=== PATIENT | male | born 1965 | race Caucasian/White ===

== ENCOUNTER → 2016-10-25 | Outpatient (CLI) | payer OTHER ==
--- NOTE | ~2016-10-25 | 2DMMODE ---
[facility] [address] [place] [address] 2 D/M-MODE ECHOCARDIOGRAM Name: MIREYA CULVER [place] Room #: REG Danilo#: [id number] Admission: 10/25/16 Attend Phys: Goyo Buckner Discharge: Date of : 63 Date of Service: 10/25/16 1831 Report #: [id number] THIS REPORT FOR: //name// APPROVED REPORT Study performed: 10/25/2016 11:53:49 EXAM: Comprehensive 2D, Doppler, and color-flow Echocardiogram Patient Location: Out-Patient Room #: Echo lab Status: routine Other Information Study Quality: Good Risk Factors: Cardiac Risk Factors: HTN, Hyperlipidemia Indications CAD Chest Pain Hypertension/HDD 2D Dimensions LVEF(%): 45.34 (>50%) IVSd: 11.28 (7-11mm) LVOT Diam: 22.59 (18-24mm) LVDd: 53.23 mm PWd: 10.99 (7-11mm) Ascending Ao: 31.94 (22-36mm) LVDs: 41.12 (25-40mm) Aortic Root: 34.01 mm IVC: 20.00 mm Whitley's LVEF: 45.34 % Volumes Left Atrial Volume (Systole) Single Plane 4CH: 92.60 mL Single Plane 2CH: 70.78 mL LA ESV Index: 39.00 mL/m2 Aortic Valve AoV Peak Vinay.: 1.33 m/s AO Peak Gr.: 7.08 mmHg LVOT Max P.18 mmHg LVOT Max V: 1.14 m/s ARIANNA Vmax: 3.43 cm2 Mitral Valve E/A Ratio: 1.[address] [facility] [address] [place] [address] 2 D/M-MODE ECHOCARDIOGRAM Name: MIREYA CULVER [place] Room #: REG [facility]#: [id number] Admission: 10/25/16 Attend Phys: Goyo Buckner Discharge: Date of : 63 Date of Service: 10/25/16 1831 Report #: [id number] MV Decel. Time: 256.44 ms MV E Max Vinay.: 1.29 m/s MV A Vinay.: 0.81 m/s MV PHT: 74.37 ms IVRT: 83.04 ms Pulmonary Valve PV Peak Vinay.: 0.83 m/s PV Peak Gr.: 2.78 mmHg Pulmonary Vein P Vein S: 0.76 m/s P Vein A: 0.20 m/s P Vein D: 0.75 m/s P Vein A Dur.: 106.1 msec P Vein S/D Ratio: 1.01 Tricuspid Valve TR Peak Vinay.: 2.88 m/s RAP Estimate: 10.00 mmHg TR Peak Gr.: 33.19 mmHg PA Pressure: 43.00 mmHg Left Ventricle The left ventricle is normal size. Akinesis of septum, anterolateral wall and apex There is normal left ventricular wall thickness. Left ventricular ejection fraction is moderate to severely decreased. LVEF 30%. Grade II diastolic dysfunction Right Ventricle The right ventricle is normal size. The right ventricular systolic function is normal. Atria Left atrium is dilated. Right atrium is dilated. Aortic Valve Aortic valve is calcified. Mild aortic regurgitation. There is no aortic valvular stenosis. Mitral Valve The mitral valve is normal in structure. Mild mitral regurgitation. No evidence of mitral valve stenosis. Tricuspid Valve The tricuspid valve is normal in structure. There is mild tricuspid regurgitation. The right atrial pressure is estimated at 10 mmHg. There is mild-moderate pulmonary hypertension. Pulmonic Valve [address] [address] 2 D/M-MODE ECHOCARDIOGRAM Name: ABIOLAMIREYA WESTFORD Room #: REG [facility]#: [id number] Admission: 10/25/16 Attend Phys: Goyo Buckner Discharge: Date of : 63 Date of Service: 10/25/16 1831 Report #: [id number] The pulmonary valve is normal in structure. There is no pulmonic valvular regurgitation. Great Vessels The aortic root is normal in size. IVC is dilated and collapses >50% with inspiration. Pericardium There is no pericardial effusion. <Conclusion> Left ventricular ejection fraction is moderate to severely decreased. Akinesis of septum, anterolateral wall and apex LVEF 30%. Grade II diastolic dysfunction Both atria are mildly dilated. Aortic valve is calcified. Mild aortic regurgitation. No stenosis The mitral valve is normal in structure. Mild mitral regurgitation. Pulmonary artery pressure of 40mmHg There is no pericardial effusion. <ELECTRONICALLY SIGNED> By: Caio Ramires MD, [facility] 10/25/161830 30 30 Caio Ramires MD, FACC /INF
== END ==
LOC: CV 11:45
DX: I25.10 Atherosclerotic heart disease of native coronary artery without angina pectoris (principal); I10 Essential (primary) hypertension

== ENCOUNTER 2016-12-11 08:07 | Observation (INO) | payer OTHER | END 2016-12-12 18:55 | disposition home or self-care (01) | LOC: CATH 08:07 → 2N 14:22 | DX: I25.5 Ischemic cardiomyopathy (principal); I50.22 Chronic systolic (congestive) heart failure; E78.5 Hyperlipidemia, unspecified; F17.210 Nicotine dependence, cigarettes, uncomplicated; Z72.89 Other problems related to lifestyle ==

== ENCOUNTER 2018-06-08 06:31 | Outpatient (CLI) | payer OTHER ==
[~2018-06-08] VITALS: Ht 182.9 cm; Wt 113.8 kg
--- NOTE | ~2018-06-08 | P ---
[facility] [place] [address] [place] [address] PROCEDURE REPORT Name: MIREYA CULVER [place] Room #: DEP DEAN Carrasco#: [id number] Admission: 06/08/18 Attend Phys: Herminio Samuel MD Discharge: 06/09/18 Date of : 63 Report #: [id number] THIS REPORT FOR: //name// CC: JAE ryder Goyo Yue Samuel DATE OF SERVICE: 06/08/2018 PREOPERATIVE DIAGNOSIS: Supraventricular tachycardia. POSTOPERATIVE DIAGNOSES: 1. Typical atrioventricular nino reentrant tachycardia. 2. Monomorphic ventricular tachycardia. HISTORY OF PRESENT ILLNESS: The patient is a 52-year-old with history of coronary artery disease, status post ME and status post ICD implantation for primary prevention of sudden cardiac . He was recently hospitalized with supraventricular tachycardia, and he was placed on medications. He is here for EP study and SVT ablation. PROCEDURES PERFORMED: 1. SVT ablation, CPT code 90132. 2. EP with left atrial pacing and recording, CPT code 84883. 3. Program stimulation and pacing after IV drug infusion, CPT code 61264. 4. 3D mapping EP, CPT code 48898. 5. Preprocedural ICD reprogramming, CPT CODE 57651. 6. Post-procedure ICD reprogramming, CPT CODE 27740. ANESTHESIA: The patient underwent MAC anesthesia with no anesthesia related complications. DESCRIPTION OF PROCEDURE: The patient underwent informed consent. We discussed the details of the procedure including the risks, which include, but not limited to bleeding, vascular damage, stroke, ME as well as damage to the tribe conduction system requiring permanent pacemaker. He understood these risks and is willing to proceed. Prior to initiation of the procedure, his ICD was reprogrammed to VVI 30 and his ICD therapies were disabled. Next, I obtained access to the bilateral femoral veins placing an 8 and 6-Malaysian short sheath in the right femoral vein and a 6 and 7-Malaysian short sheath in the left femoral vein. Next, under fluoroscopy, I placed 3 quadripolar catheters at the HRA, His and RV positions and decapolar catheter easily in the coronary sinus. Next, a basic EP study was performed. Pacing was performed from all catheters including the coronary sinus catheter for left atrial pacing and recording. At baseline, the patient was in sinus rhythm with sinus cycle length of 840 milliseconds, SD interval 135 milliseconds, QRS duration 80 milliseconds, QT interval 390 [facility] [address] [place] [address] PROCEDURE REPORT Name: MIREYA CULVER [place] Room #: DEP DEAN Carrasco#: [id number] Admission: 06/08/18 Attend Phys: Herminio Samuel MD Discharge: 06/09/18 Date of : 63 Report #: [id number] milliseconds, AH interval 87 milliseconds and HV interval 36 milliseconds. Atrial burst pacing was performed and AV block was noted at 350 milliseconds. Atrial ERP was noted at 320 milliseconds at a [address] cycle length. Ventricular pacing was performed and VA block was noted at 320 milliseconds. VA ERP was noted at 330 milliseconds at a [address] cycle length. Of note, prior to the ablation, the patient reported that he had accidentally taken Coreg on the morning of the procedure, this probably made induction somewhat challenging. Next, isoproterenol infusion was initiated at 2 mcg per minute. We did not really get robust effect from this. AV block was noted at 320 milliseconds. Single atrial extrastimuli were delivered, and we would get reproducible single AV nino echoes, but no induction of SVT. Next, isoproterenol was initiated at 4 mcg per minute. Atrial burst pacing was performed. I could not induce SVT. I then performed ventricular burst pacing at around 300 milliseconds. There was evidence of a long-short phenomenon due to lack of capture of one of the ventricular paced beats, and this resulted in ventricular tachycardia. The initial VT was at 290 milliseconds with a right bundle branch block morphology negative concordance, and it was superiorly directed and negative in lead 1. This VT lasted for 4 seconds and then he went into a more stable VT that had a cycle length of 250 milliseconds, QRS duration was 130 milliseconds with a right bundle branch block morphology negative concordance and this one was now inferiorly directed. This lasted for 20 seconds, did not respond to ventricular burst pacing, and therefore, a 200 joule synchronized cardioversion restored sinus rhythm. This was clearly ventricular tachycardia as there was clear AV dissociation. We therefore continued with the EP study and with atrial burst pacing, I could now induce SVT. The SVT had a cycle length of 380 milliseconds, the septal VA time was 35 milliseconds, and I was able to perform ventricular entrainment with evidence of VAHV response. This tachycardia was now easily inducible, and it was clearly the clinical arrhythmia as we had seen documented on his ICD tracings. 3D MAPPING AND ABLATION: Next, I removed my HRA catheter and placed a 4 mm [employer] Mercado ablation catheter into the right atrium via an SR0 sheath. I created a detailed 3D geometry of the right atrium with specific emphasis of the His bundle and slow pathway region. I performed a total of 7 ablation lesions. Lesion #6 and 7 demonstrated nice slow junctionals. Post-ablation testing was then performed. We performed testing on 6 mcg of isoproterenol. AV block was noted at 300 milliseconds. Atrial ERP was noted at 220 milliseconds at [address] cycle length. I continue to perform aggressive atrial pacing maneuvers, performed a less aggressive ventricular pacing maneuvers as I did not want to induce VT again. We tested for approximately an hour and decreased the iso to 3 mcg per minute and then tested while he was off isoproterenol. Off isoproterenol, AV block was noted at 350 milliseconds. We no longer had any echoes and could no longer induce SVT. As such, the procedure was then concluded. Post-ablation, he was in sinus rhythm with a sinus cycle length of 840 milliseconds, SD interval 170 milliseconds, QRS duration 80 milliseconds, QT interval 385 milliseconds. As such, all catheters and sheaths [facility] [address] [place] [address] PROCEDURE REPORT Name: MIREYA CULVER [place] Room #: DEP [facility].#: [id number] Admission: 06/08/18 Attend Phys: Herminio Samuel MD Discharge: 06/09/18 Date of : 63 Report #: [id number] were pulled and hemostasis obtained and the patient awoke neurologically and hemodynamically intact with no significant bleeding. His ICD was reinterrogated. His therapies were reenabled. CONCLUSIONS: 1. Successful ablation of typical AV nino reentrant tachycardia. 2. Normal SA nino function. 3. Normal AV nino function. 4. Normal His-Purkinje function. 5. Induction of a monomorphic ventricular tachycardia, which is likely due to his prior apical myocardial infarction. RECOMMENDATIONS: The patient will be monitored in the post-procedure suite and undergo 3 hours of bed rest. I anticipate discharge home as the patient is doing well. By: 1239 1722 Herminio Samuel MD /pablito
[~2018-06-08 06:31] MED LIST: ALDACTONE25 MG PO; ASPIR 8181 MG PO; CARVEDILOL25 MG PO; EFFIENT10 MG PO; ENTRESTO 49 MG1 EACH PO; IMDUR 30 MG TAB30 M1 PO; LOVASTATIN 20 M20 MG PO; POTASSIUM GLUCO99 M2 PO
[2018-06-08 06:58] VITALS: BP 122/77
[2018-06-08 07:13] LABS: ABSOLUTE NEUTROPHILS 5.1 thou/uL (1.4-8.2); BASOPHILS 0.9 % (0.0-2.0); EOSINOPHILS 3.8 % (0.0-3.0); HEMATOCRIT 40.2 % (42.0-52.0); LYMPHOCYTES 29.3 % (24.0-44.0); MCH 30.9 pg (26.0-34.0); MCHC 34.8 g/dL (28.0-37.0); MCV 88.9 fL (80.0-100.0); MONOCYTES 10.5 % (1.0-8.0); PLATELET COUNT 236 thou/uL (150-400); POLYS 55.5 % (36.0-66.0); RBC 4.53 mil/uL (4.50-6.00); RDW 13.8 % (10.5-14.5); WBC 9.2 thou/uL (4.0-11.0)
[2018-06-08] MEDS ORDERED: LASIX 40 MG TAB40 M2 PO (07:14)
[2018-06-08] MEDS ORDERED: PLAVIX 75 MG TA75 M1 PO (07:14)
[2018-06-08] MEDS ORDERED: DIGOXIN250 MCG PO (07:15)
[2018-06-08] MEDS ORDERED: PROTONIX40 M1 PO (07:17)
[2018-06-08 07:21] LABS: CALCIUM 9.1 mg/dL (8.5-10.1); CREATININE 1.6 mg/dL (0.7-1.3)
[2018-06-08 07:23] LABS: APTT 26.7 Seconds (24.5-32.8); PROTIME 10.1 Seconds (9.3-11.4)
[2018-06-08 07:27] LABS: ALBUMIN 3.1 g/dL (3.4-5.0); TOTAL BILIRUBIN 0.2 mg/dL (<0.1-1.0); TOTAL PROTEIN 6.6 g/dL (6.4-8.2)
--- NOTE | 2018-06-08 15:31 | NUR ---
PT. ASSISTED UP TO BEDSIDE TO ATTEMPT TO VOID STATES CANNOT VOID IN BED WITH URINAL. PT MOANS AND STATES HIS GROINS AND ABD ARE PAINFUL. RR 32. INSTRUCTED TO SLOW BREATHING DOWN. EMOTIONAL SUPPORT GIVEN. GROINS SOFT. NO HEMATOMA. PT. HAS RECEIVED 1700CC IVF WITH NO UO. PT. MOANS AND ASKS TO HAVE BLADDER EMPTIED. PT. STRAIGHT CATH WITH 950CC CLEAR YELLOW URINE OUTPUT. RR SLOWING TO 20-24. SBP 95. PT REPORTS TO HAVE SBP APPROX 100. DR. COHEN CALLED TO COME ASSESS PT. CONT TO MONITOR.
--- NOTE | 2018-06-08 16:12 | NUR ---
PT RESTING MORE COMFORTABLY NOW AFTER MORPHINE IV GIVEN. BP 93/54, HR 62, SATS 92% ON RA. FAMILY AT BEDSIDE.
[2018-06-08 17:08] VITALS: BP 91/59
[2018-06-08 19:24] VITALS: BP 93/53
[2018-06-09 00:15] VITALS: BP 94/65
--- NOTE | 2018-06-09 05:55 | NUR ---
ASSUMED PT CARE AT 1900 WITH BEDSIDE REPORT COMPLETED. PT IS ALERT AND ORIENTED WITH NO SIGN OF DISTRESS NOTED IN PT. PT IS STABLE POST ABLATION. ASSESSMENT IS CHARTED. NO SCHEDULED MEDICATION ORDERED. PT REQUESTED FOR PAIN MEDICATION DUE TO BILATERAL GROIN SITE PAIN. PT IS STABLE,NO SIGN OF BLEEDING OR HEMATOMA NOTICED ON BILATERAL SITES. DENIES ANY FURTHER NEEDS AT THIS TIME.
--- NOTE | 2018-06-09 08:34 | EKG ---
[address] [place] [address] ELECTROCARDIOGRAM REPORT Name: ABIOLAMIREYA MELI Room #: 215-P [facility]#: [id number] Admission: 06/08/18 Attend Phys: Herminio Samuel MD Discharge: Date of : 63 Report #: [id number] THIS REPORT FOR: //name// Test Date: 2018-06-08 Test Time: 13:38:32 Pat Name: MIREYA CULVER Department: Room: Gender: M Roller Turner: LUPE : 1965 Requested By: Carli Mclaughlin Order Number: [id number] MD: Caio Ramires Measurements Intervals [place] Rate: 68 P: 48 MS: 151 QRS: 59 QRSD: 104 T: 150 QT: 384 QTc: 409 Interpretive Statements Sinus rhythm Anterolateral infarct, age indeterminate No previous ECG available for comparison Electronically Signed On 06-09-2018 8:34:46 NURSE SPECIALIST by Caio Ramires [email or web address] <ELECTRONICALLY SIGNED> By: Caio Ramires MD, [facility] 06/09/18 0834 1338 1338 Caio Ramires MD, FACC /EPI
[2018-06-09 09:22] VITALS: BP 113/69
--- NOTE | 2018-06-09 09:50 | 2DMMODE ---
[facility] [place] [address] 2 D/M-MODE ECHOCARDIOGRAM Name: [facility]VER [facility] Room #: 215-P [facility]#: [id number] Admission: 06/08/18 Attend Phys: Herminio Samuel Discharge: Date of : 63 Date of Service: 06/09/18 0950 Report #: [id number] THIS REPORT FOR: //name// APPROVED REPORT Study performed: 06/09/2018 08:24:36 EXAM: Comprehensive 2D, Doppler, and color-flow Echocardiogram Patient Location: Bedside Room #: [facility] Status: routine BSA: 2.34 HR: 72 bpm BP: 94/65 mmHg Rhythm: NSR Other Information Study Quality: Adequate Indications CAD S^P Abblation Left Ventricle The left ventricle is normal size. There is akinesis in the apical wall. There is akinesis in the apical septal wall. There is akinesis in the mid-inferior wall. There is akinesis in the apical lateral wall. There is normal left ventricular wall thickness. Left ventricular systolic function is mild to moderately decreased. There is an apical mural thrombus LVEF is 35-40%. Right Ventricle The right ventricle is normal size. The right ventricular systolic function is normal. Device lead is present in the right ventricle. Atria The left atrium size is normal. The right atrium size is normal. Aortic Valve The aortic valve is not well visualized. Mitral Valve The mitral valve is normal in structure. [facility] [address] [place] [address] 2 D/M-MODE ECHOCARDIOGRAM Name: MI[facility] [place]ULVER [facility] Room #: 215-P [facility] M.R.#: [id number] Admission: 06/08/18 Attend Phys: Herminio Samuel Discharge: Date of : 63 Date of Service: 06/09/18 0950 Report #: [id number] Tricuspid Valve The tricuspid valve is normal in structure. Great Vessels The aortic root is normal in size. IVC is not well visualized. Pericardium There is no pericardial effusion. <Conclusion> The left ventricle is normal size. There is akinesis in the apical wall. There is akinesis in the apical septal wall. There is akinesis in the mid-inferior wall. There is akinesis in the apical lateral wall. Left ventricular systolic function is mild to moderately decreased. LVEF is 35-40%. The right ventricle is normal size. Device lead is present in the right ventricle. The aortic valve is not well visualized. The mitral valve is normal in structure. The tricuspid valve is normal in structure. There is no pericardial effusion. There is an apical mural thrombus previously identified and treated <ELECTRONICALLY SIGNED> By: Goyo Turner MD 06/09/18 0950 0950 0950 Goyo Turner MD /INF
--- NOTE | 2018-06-09 10:17 | NUR ---
PT CARE ASSUMED APPROX 0700. PT ALERT AND ORIENTED X4. DENIES PAIN AND SOA. VSS. PT TO DISCHARGE HOME TO SELF CARE. BILATERAL GROIN SITES C/D/I. DRESSINGS REMOVED THIS AM BY EP ADITI GARNER. POST ABLATION INSTRUCTIONS FO GOING HOME GIVEN VERBALLY TO PT BY ASSEMBLING FABRICATOR. DISCHARGE INSTRUCTIONS AND FORM GIVEN BY THIS NURSE. PT AND SPOUSE DENY QUESTIONS OR CONCERNS REGARDING DISCHARGE MED (NO NEW), F/U APPTS, GROIN SITE CARE, DIET, ACTIVITY RESTRICTIONS OR GENERAL POST HOSPITAL CARE. IV OUT, TELE BOX OFF. PT'S PRESENT TO PROVIDE TRANSPORTATION HOME. PT ESCORTED OUT VIA WHEELCHAIR BY HOSPITAL STAFF.
--- NOTE | 2018-06-09 16:01 | EKG ---
[address] [place] [address] ELECTROCARDIOGRAM REPORT Name: ABOILAMIREYA SANDERSON [id number] Admission: 06/08/18 Attend Phys: Herminio Samuel MD Discharge: 06/09/18 Date of : 63 Report #: [id number] THIS REPORT FOR: //name// [facility] Test Date: 2018-06-09 Test Time: 07:13:58 Pat Name: MIREYA CULVER Department: Room: 215 P Gender: M Balance Clerk: TERELL : 1965 Requested By: Herminio Samuel Order Number: [id number] MD: Caio Ramires Measurements Intervals [place] Rate: 66 P: 56 IL: 146 QRS: 53 QRSD: 99 T: 176 QT: 373 QTc: 391 Interpretive Statements Sinus rhythm Probable inferior infarct, old Anterolateral infarct, age indeterminate No previous ECG available for comparison Electronically Signed On 06-09-2018 16:01:21 WINDOW GLASS INSTALLER by Caio Ramires [email or web address] <ELECTRONICALLY SIGNED> By: Caio Ramires MD, [facility] 06/09/18 1601 0713 2 Caio Ramires MD, FACC /EPI
== END 2018-06-09 10:10 | disposition home or self-care (01) ==
LOC: CATH 06:31 → 2N 17:07 → CATH 06-09 10:10
PROVIDERS: Internal Medicine Cardiovascular Disease
DX: I47.1 Supraventricular tachycardia (principal); I47.2 Ventricular tachycardia; I11.0 Hypertensive heart disease with heart failure; I50.9 Heart failure, unspecified; I25.2 Old myocardial infarction; I42.9 Cardiomyopathy, unspecified; E78.5 Hyperlipidemia, unspecified; F17.210 Nicotine dependence, cigarettes, uncomplicated; Z95.5 Presence of coronary angioplasty implant and graft; Z82.49 Family history of ischemic heart disease and other diseases of the circulatory system; Z98.890 Other specified postprocedural states; Z79.899 Other long term (current) drug therapy; Z95.810 Presence of automatic (implantable) cardiac defibrillator; Z79.82 Long term (current) use of aspirin
CPT/HCPCS: 10081; 62110; 62900; 70005